=== PATIENT | female | born 1995 | race African-American/Black ===

== ENCOUNTER 2016-09-05 10:16 | Emergency (ER) | payer MEDICAID, OTHER ==
[~2016-09-05] VITALS: Ht 154.9 cm; Wt 54.5 kg
[2016-09-05 10:18] VITALS: BP 114/60; PULSE 73; RESP 15; TEMP 98.2; O2SAT 98
--- NOTE | 2016-09-05 10:29 | PD ---
HPI . facial pain/nose pain Chief Complaint: Injury Time Seen by Provider: 10:29 Travel History International Travel<30 days: No Contact w/Intl Traveler<30days: No Traveled to known affect area: No History of Present Illness HPI 21-year-old female here with complaints of facial pain and since yesterday evening. Patient was at a dance recital and somehow fell, hitting her face on the ground. Immediately she experienced a nosebleed and didn't think much of it. She went home and took Tylenol, however her pain continues despite taking [id number] medications. Pain is rates 6/10 and localized around the nose. She took tylenol about 30 minutes ago. She does have significant pain in her nose. She denies any loss of vision, loss of consciousness or headache. PFSH Past Medical History ?: Not LMP: 08/2016 Social History Tobacco Use: No Allergies-Medications (Allergen,Severity, Reaction): Coded Allergies: No Known Allergies (Unverified , 09/05/16) Reported Meds & Prescriptions Reported Meds & Active Scripts Active Reported Tylenol (Acetaminophen) 325 Mg Cap 325 Mg PO Q6H PRN Review of Systems General / Constitutional: No: Fever Eyes: No: Visual changes HENT: Positive: Other (facial pain/ nose), No: Headaches Cardiovascular: No: Chest Pain or Discomfort Respiratory: No: Shortness of Breath Gastrointestinal: No: Abdominal Pain Genitourinary: No: Dysuria Musculoskeletal: No: Pain Skin: No Rash Neurologic: No: Weakness Psychiatric: No: Depression Endocrine: No: Polydipsia Hematologic/Lymphatic: No: Easy Bruising Physical Exam Narrative GENERAL: AAO x 3, no acute distress, Well-nourished, well-developed patient. SKIN: Warm and dry. No visible rashes or bruising. No obvious deformity of the face or cranium. HEAD: Normocephalic and atraumatic. EYES: No scleral icterus. No injection or drainage. EOM intact, PERRLA. No evidence of entrapment, edema or hyphema ENT: No nasal drainage noted. Mucous membranes pink. Airway patent. nNo observable deformity. No abnormality with nasal turbinates.no visible hematoma on exam. NECK: Supple, trachea midline. No JVD. CARDIOVASCULAR: Regular rate and rhythm without murmurs, gallops, or rubs. RESPIRATORY: Breath sounds equal bilaterally. No accessory muscle use. No rhonchi or rales. GASTROINTESTINAL: Abdomen soft, non-tender, nondistended. EXTREMITIES: No cyanosis or edema. BACK: Nontender without obvious deformity. No CVA tenderness. PSYCH: AAO x 3, normal affect. Data Data Last Documented VS Vital Signs Date Time Temp Pulse Resp B/P Pulse Ox O2 Delivery O2 Flow Rate FiO2 09/05/16 10:18 98.2 73 15 114/[address] Facial Bones W/O Iv Cont (09/05/16 10:32) Ed Urine Pregnancytest Poc (09/05/16 10:32) MDM Medical Decision Making Medical Screen Exam Complete: Yes Emergency Medical Condition: Yes Medical Record Reviewed: Yes Differential Diagnosis facial fracture, Narrative Course 21-year-old female here with complaints of facial pain and since yesterday evening. Patient was at a dance recital and somehow fell, hitting her face on the ground. Immediately she experienced a nosebleed and didn't think much of it. She went home and took Tylenol, however her pain continues despite taking [id number] medications. Pain is rates 6/10 and localized around the nose. She took tylenol about 30 minutes ago. She does have significant pain in her nose. She denies any loss of vision, loss of consciousness or headache. Patient seen and examined. She has some facial pain with a fall and nosebleed yesterday. Urine preg negative. I recommend a CT scan of the face to rule out any type of fracture. With the mechanism of injury it is possible that she may have a slight fracture , despite not having any significant findings on physical exam. CT scan with mildly displaced nasal bone fracture. Recommend outpatient f/u with cranial/facial surgery She verbalized understanding. Advised Tylenol or Motrin as needed for pain. Patient verbalized understanding of instructions, questions were answered, and thanked me for their care. I advised them if their condition worsens, please return to the nearest emergency room for further care. Diagnosis Primary Impression: Nasal bones, closed fracture Qualified Code: S02.2XXA - Closed fracture of nasal bone, initial encounter Patient Instructions: General Instructions Additional Instructions: Please return to emergency department if your symptoms return or worsen. Follow up with your primary care provider. Take medications as prescribed. Please follow with cranial/facial surgery within the next 3-5 days. If you develop any swelling or worsening of pain, return to the emergency department. You can use ice if any mild swelling develops. Med/Other Pt SpecificInfo: No Meds Exist/No RX given Disposition: 01 DISCHARGE HOME Condition: Stable Mery Umana Sep 05, 2016 10:29
[2016-09-05] MEDS ORDERED: ACET1CAP18 PO (10:35)
--- NOTE | 2016-09-05 12:07 | RADRPT ---
EXAM DATE/TIME: 09/05/2016 11:47 [facility] COMPARISON: No previous studies available for comparison. INDICATIONS : Trauma, fell last night. Complains of facial pain. RADIATION DOSE: 32.50 CTDIvol (mGy) MEDICAL HISTORY : None SURGICAL HISTORY : None. ENCOUNTER: Initial ACUITY: 1 day PAIN SCORE: 6/10 LOCATION: Bilateral facial TECHNIQUE: Volumetric scanning of the facial bones was performed. Using automated exposure control and adjustme nt of the mA and/or kV according to patient size, radiation dose was kept as low as reasonably achiev able to obtain optimal diagnostic quality images. FINDINGS: ORBITS: The orbital and infraorbital osseous structures are intact. The retroconal structures have a normal configuration. No radiopaque foreign bodies are seen. NASAL BONE: There is a mildly displaced fracture of the nasal bone. ZYGOMATIC ARCHES: Symmetric without evidence of fracture. SINUSES: The maxillary, ethmoid and frontal sinuses are intact. No air-fluid levels seen. NASAL CAVITY: The nasal septum is intact and midline. The lacrimal ducts are intact. SOFT TISSUES: No radiopaque foreign bodies seen. No soft-tissue swelling is seen. INTRACRANIAL: No intracranial air seen. CRIBIFORM PLATE: Grossly intact. CONCLUSION: 1. Mildly displaced fracture of the nasal bone. The osseous structures are otherwise intact. Sid Chase MD on September 05, 2016 at 12:04 Board Certified Radiologist. This report was verified electronically.
== END 2016-09-05 12:54 | disposition home or self-care (01) ==
LOC: NEPK 10:16
DX: S02.2XXA Fracture of nasal bones, initial encounter for closed fracture (principal); R51 Headache; W01.198A Fall on same level from slipping, tripping and stumbling with subsequent striking against other object, initial encounter; Y93.41 Activity, dancing; Y92.9 Unspecified place or not applicable
CPT/HCPCS: 70486; 84703